=== PATIENT | female | born 1980 | race Caucasian/White ===

== ENCOUNTER 2022-11-22 14:46 | Emergency (ER) | payer OTHER ==
[2022-11-22 15:04] VITALS: BP 118/81; PULSE 61; RESP 20; TEMP 98.1; BMI 22.3
[2022-11-22] MEDS ORDERED: ACETAMINOPHEN 500 MG TABLET (FP) PO ONE (15:06)
[2022-11-22] MEDS ORDERED: ACETAMINOPHEN 500 MG TABLET (FP) ONE (15:56)
== END 2022-11-22 17:04 | disposition home or self-care (01) ==
LOC: FER 14:46
DX: S09.90XA Unspecified injury of head, initial encounter (principal); R42 Dizziness and giddiness; W22.8XXA Striking against or struck by other objects, initial encounter; Y92.34 Swimming pool (public) as the place of occurrence of the external cause
CPT/HCPCS: 70450-TC; 81025; 99284-25